=== PATIENT | female | born 1995 | race African-American/Black ===

== ENCOUNTER 2018-04-29 10:41 | Emergency (ER) | payer MEDICAID, OTHER ==
[~2018-04-29] VITALS: Ht 182.9 cm; Wt 74.3 kg
[2018-04-29 13:00] VITALS: BP 103/62
== END 2018-04-29 13:03 | disposition home or self-care (01) ==
LOC: ER 10:41
DX: K60.2 Anal fissure, unspecified (principal)
CPT/HCPCS: 99283

== ENCOUNTER 2020-04-18 10:54 | Emergency (ER) | payer MEDICAID ==
[~2020-04-18] VITALS: Ht 165.1 cm; Wt 69.0 kg
[2020-04-18 11:01] VITALS: BP 119/65
== END 2020-04-18 16:33 | disposition home or self-care (01) ==
LOC: ER 10:54
DX: J06.9 Acute upper respiratory infection, unspecified (principal)
CPT/HCPCS: 87070; 87430; 99283